=== PATIENT | male | born 1980 ===

== ENCOUNTER 2019-06-25 12:01 | Inpatient (IN) ==
[2019-06-25] MEDS ORDERED: ONDANSETRON 4 MG/2 ML VIAL IV PRN (15:15)
[2019-06-25] MEDS: DEXT 5% NACL 0.9% KCL 20 MEQ 20 MEQ/1,000 ML BAG IV SCH (16:52)
[2019-06-25 20:38] LABS: Apearance,Urine Slightly Hazy (Clear); Bacteria,Urine Occasional /HPF (Few); Bilirubin,Urine Moderate mg/dL (Negative); Blood, Urine Negative (Negative); Glucose,Urine (UA) Negative (Negative); Hyaline Casts,Urine 21 /LPF (0-3); Ketones,Urine Negative (Negative); Mucus,Urine Occasional /LPF (Occasional); Nitrite,Urine Negative (Negative); Protein,Urine 30 MG/DL; Squamous Epithelial Cell,Urine Occasional /HPF (0-10); Urine Color Amber (Yellow); WBC,Urine 2 /HPF (0-6)
[2019-06-25] MEDS: POTASSIUM CHLORIDE 20 MEQ TABLET PO SCH (20:43)
[2019-06-25 20:56] LABS: Barbiturates Screen,Urine Negative (Negative); Benzodiazepines Screen,Urine Negative (Negative); Cannabinoid Screen,Urine Negative (Negative); Opiate Screen,Urine Negative (Negative); Phencyclidine Screen,Urine Negative (Negative)
[2019-06-26] MEDS: DEXT 5% NACL 0.9% KCL 20 MEQ 20 MEQ/1,000 ML BAG IV SCH ×4 (03:30→20:30)
[2019-06-26 06:00] LABS: Basophils # 0.1 10*3/uL (0.0-0.2); Basophils % 0.3 % (0.0-0.8); Eosinophils # 0.1 10*3/uL (0.0-0.87); Eosinophils % 0.5 % (0.00-10.9); Hemoglobin 9.1 GM/DL (14.0-18.0); Immature Granulocytes % 1.2 %; Immature Granulocytes Absolute 0.27 #; Lymphocytes % 4.5 % (21.2-54.2); Mean Corpuscular HGB Conc 36.4 GM/DL (32-36); Mean Platelet Volume 8.9 FL (9.6-12.0); Monocytes % 5.9 % (1.7-12.7); Neutrophils % 87.6 % (38.7-73.9); Platelet Count 131 T/CUMM (130-400); Red Blood Count 2.38 MC/CUMM (3.8-5.5)
[2019-06-26 06:14] LABS: INR 3.7
[2019-06-26 06:31] LABS: Eosinophils 4 % (0-10); Hypochromasia 1+; Lymphocytes 3 % (20-55); Platelet Estimate Normal; Segmented Neutrophils 85 % (50-85); Total Cells Counted 100
[2019-06-26 06:38] LABS: Albumin 1.2 G/DL (3.4-5.0); Bilirubin,Direct 11.47 MG/DL (0.0-0.20); Calcium 7.3 MG/DL (8.5-10.1); Osmolality,Calculated 245.8 MOS/KG (273-304)
[2019-06-26 06:39] LABS: PT Patient Result 37.5 SECS (9.8-11.9); Partial Thromboplastin Time 98.5 SECS (20.8-36.0)
[2019-06-26 06:40] LABS: Bilirubin,Total 16.3 MG/DL (0.2-1.0)
[2019-06-26] MEDS: POTASSIUM CHLORIDE 20 MEQ TABLET PO SCH ×2 (08:22→20:32)
[2019-06-26] MEDS: LACTULOSE 20 GM/30 ML UDCUP PO SCH ×2 (08:45→20:33)
[2019-06-26] MEDS ORDERED: ALBUMIN 25% 50 GM in PREMIX 1 EACH IV ONE (09:00)
[2019-06-26] MEDS ORDERED: SODIUM CHLORIDE 0.9% 1,000 ML IV PRN (09:02)
[2019-06-26 10:11] LABS: % Iron Saturation 76.1 % (18-50)
[2019-06-26] MEDS: PHYTONADIONE 10 MG/1 ML AMP SUBCUT SCH (10:58)
[2019-06-26 13:34] LABS: Folate 2.5 NG/ML (5.4-24.0); Vitamin B12 > 2000 PG/ML (211-911)
[2019-06-26] MEDS: cefTRIAXone 1,000 MG in SYRINGE 1 EACH IV SCH (13:41)
[2019-06-26] MEDS: metroNIDAZOLE INJ 500 MG in PREMIX 1 EACH IV SCH ×2 (13:46→20:32)
[2019-06-27] MEDS: metroNIDAZOLE INJ 500 MG in PREMIX 1 EACH IV SCH ×4 (02:16→21:34)
[2019-06-27] MEDS: DEXT 5% NACL 0.9% KCL 20 MEQ 20 MEQ/1,000 ML BAG IV SCH ×4 (06:35→21:34)
[2019-06-27] MEDS: LACTULOSE 20 GM/30 ML UDCUP PO SCH ×2 (09:36→21:35)
[2019-06-27] MEDS: POTASSIUM CHLORIDE 20 MEQ TABLET PO SCH ×2 (09:36→21:35)
[2019-06-27] MEDS: PHYTONADIONE 10 MG/1 ML AMP SUBCUT SCH (09:36)
[2019-06-27 11:35] LABS: Basophils # 0.1 10*3/uL (0.0-0.2); Basophils % 0.4 % (0.0-0.8); Eosinophils # 0.1 10*3/uL (0.0-0.87); Eosinophils % 0.4 % (0.00-10.9); Hemoglobin 8.4 GM/DL (14.0-18.0); Immature Granulocytes % 1.7 %; Immature Granulocytes Absolute 0.36 #; Lymphocytes # 0.7 10*3/uL (1.4-4.0); Lymphocytes % 3.3 % (21.2-54.2); Mean Corpuscular Volume 108.1 FL (87-102); Mean Platelet Volume 8.5 FL (9.6-12.0); Monocytes % 4.6 % (1.7-12.7); Neutrophils % 89.6 % (38.7-73.9); Platelet Count 160 T/CUMM (130-400); Red Blood Count 2.22 MC/CUMM (3.8-5.5); Red Cell Distribution Width 15.7 % (9.3-17.3); White Blood Count 21.6 T/CUMM (4-12)
[2019-06-27 11:50] LABS: Calcium 7.6 MG/DL (8.5-10.1); Osmolality,Calculated 260.7 MOS/KG (273-304)
[2019-06-27 12:11] LABS: INR 1.7; PT Patient Result 17.8 SECS (9.8-11.9)
[2019-06-27 12:16] LABS: Partial Thromboplastin Time 49.3 SECS (23.9-33.8)
[2019-06-27] MEDS ORDERED: DIAZEPAM 5 MG TABLET PO ONE (12:20)
[2019-06-27 12:23] LABS: Anisocytosis 1+; Band Neutrophils 9 % (0-10); Eosinophils 4 % (0-10); Lymphocytes 4 % (20-55); Macrocytosis 2+; Platelet Estimate Normal; Segmented Neutrophils 80 % (50-85); Total Cells Counted 100
[2019-06-27] MEDS: cefTRIAXone 1,000 MG in SYRINGE 1 EACH IV SCH (14:04)
[2019-06-27] MEDS ORDERED: SODIUM CHLORIDE 0.9% 1,000 ML IV PRN (15:45)
[2019-06-27 16:06] LABS: Neutrophils,Peritoneal Fluid 24 %
[2019-06-27 16:07] LABS: RBC,Peritoneal Fluid 140 T/CUMM
[2019-06-27] MEDS: FOLIC ACID 1 MG TABLET PO SCH (21:35)
[2019-06-28] MEDS: metroNIDAZOLE INJ 500 MG in PREMIX 1 EACH IV SCH ×4 (01:06→20:59)
[2019-06-28] MEDS: DEXT 5% NACL 0.9% KCL 20 MEQ 20 MEQ/1,000 ML BAG IV SCH ×4 (02:18→23:47)
[2019-06-28 06:12] LABS: Basophils # 0.1 10*3/uL (0.0-0.2); Basophils % 0.5 % (0.0-0.8); Eosinophils # 0.1 10*3/uL (0.0-0.87); Eosinophils % 0.3 % (0.00-10.9); Hematocrit 29.8 VOL% (42.0-52.0); Hemoglobin 10.2 GM/DL (14.0-18.0); Immature Granulocytes % 2.5 %; Immature Granulocytes Absolute 0.64 #; Lymphocytes # 1.2 10*3/uL (1.4-4.0); Lymphocytes % 4.6 % (21.2-54.2); Mean Corpuscular HGB Conc 34.2 GM/DL (32-36); Mean Corpuscular Volume 106.4 FL (87-102); Mean Platelet Volume 9.2 FL (9.6-12.0); Monocytes % 5.8 % (1.7-12.7); Neutrophils % 86.3 % (38.7-73.9); Platelet Count 185 T/CUMM (130-400); Red Cell Distribution Width 18.3 % (9.3-17.3); White Blood Count 25.9 T/CUMM (4-12)
[2019-06-28 06:33] LABS: INR 2.1
[2019-06-28 06:34] LABS: Calcium 7.7 MG/DL (8.5-10.1); Osmolality,Calculated 260.5 MOS/KG (273-304); Total Protein 6.6 G/DL (6.4-8.3)
[2019-06-28 06:34] LABS: PT Patient Result 21.9 SECS (9.8-11.9); Partial Thromboplastin Time 53.3 SECS (23.9-33.8)
[2019-06-28 06:35] LABS: Albumin 2.1 G/DL (3.4-5.0); Bilirubin,Direct 13.42 MG/DL (0.0-0.20); Calcium 7.6 MG/DL (8.5-10.1); Osmolality,Calculated 260.5 MOS/KG (273-304); Total Protein 6.8 G/DL (6.4-8.3)
[2019-06-28 06:37] LABS: Bilirubin,Indirect 6.7 MG/DL (0.0-1.0); Bilirubin,Total 20.1 MG/DL (0.2-1.0)
[2019-06-28 06:47] LABS: Eosinophils 1 % (0-10); Lymphocytes 5 % (20-55); Segmented Neutrophils 85 % (50-85); Total Cells Counted 100
[2019-06-28 06:48] LABS: Platelet Estimate Decreased; Polychromasia Slight
[2019-06-28] MEDS: POTASSIUM CHLORIDE 20 MEQ TABLET PO SCH ×2 (09:09→20:55)
[2019-06-28] MEDS: PHYTONADIONE 10 MG/1 ML AMP SUBCUT SCH (09:09)
[2019-06-28] MEDS: LACTULOSE 20 GM/30 ML UDCUP PO SCH ×2 (09:10→20:55)
[2019-06-28] MEDS: cefTRIAXone 1,000 MG in SYRINGE 1 EACH IV SCH (16:13)
[2019-06-28] MEDS: FOLIC ACID 1 MG TABLET PO SCH (20:55)
[2019-06-29] MEDS: metroNIDAZOLE INJ 500 MG in PREMIX 1 EACH IV SCH ×3 (02:10→15:03)
[2019-06-29 06:03] LABS: Basophils # 0.2 10*3/uL (0.0-0.2); Basophils % 0.8 % (0.0-0.8); Eosinophils # 0.1 10*3/uL (0.0-0.87); Eosinophils % 0.4 % (0.00-10.9); Hematocrit 28.1 VOL% (42.0-52.0); Hemoglobin 9.7 GM/DL (14.0-18.0); Immature Granulocytes % 3.2 %; Immature Granulocytes Absolute 0.78 #; Lymphocytes # 1.1 10*3/uL (1.4-4.0); Lymphocytes % 4.5 % (21.2-54.2); Mean Corpuscular HGB Conc 34.5 GM/DL (32-36); Mean Corpuscular Volume 103.3 FL (87-102); Mean Platelet Volume 8.7 FL (9.6-12.0); Monocytes % 6.5 % (1.7-12.7); Neutrophils % 84.6 % (38.7-73.9); Platelet Count 172 T/CUMM (130-400); Red Blood Count 2.72 MC/CUMM (3.8-5.5); White Blood Count 24.7 T/CUMM (4-12)
[2019-06-29 06:17] LABS: INR 2.8; Partial Thromboplastin Time 67.2 SECS (23.9-33.8)
[2019-06-29 06:20] LABS: PT Patient Result 28.9 SECS (9.8-11.9)
[2019-06-29 06:24] LABS: Albumin 1.7 G/DL (3.4-5.0); Calcium 7.9 MG/DL (8.5-10.1); Osmolality,Calculated 265.2 MOS/KG (273-304); Total Protein 6.1 G/DL (6.4-8.3)
[2019-06-29 06:30] LABS: Bilirubin,Total 19.5 MG/DL (0.2-1.0)
[2019-06-29 06:37] LABS: Band Neutrophils 6 % (0-10); Eosinophils 1 % (0-10); Lymphocytes 3 % (20-55); Segmented Neutrophils 85 % (50-85); Total Cells Counted 100
[2019-06-29 06:38] LABS: Platelet Estimate Adequate
[2019-06-29] MEDS: DEXT 5% NACL 0.9% KCL 20 MEQ 20 MEQ/1,000 ML BAG IV SCH ×3 (10:04→21:33)
[2019-06-29] MEDS: LACTULOSE 20 GM/30 ML UDCUP PO SCH ×2 (10:07→21:28)
[2019-06-29] MEDS: POTASSIUM CHLORIDE 20 MEQ TABLET PO SCH ×2 (10:07→21:32)
[2019-06-29] MEDS: PHYTONADIONE 10 MG/1 ML AMP SUBCUT SCH (10:07)
[2019-06-29] MEDS: cefTRIAXone 1,000 MG in SYRINGE 1 EACH IV SCH (15:04)
[2019-06-29] MEDS: FOLIC ACID 1 MG TABLET PO SCH (21:28)
[2019-06-30 05:06] LABS: Basophils # 0.2 10*3/uL (0.0-0.2); Basophils % 0.6 % (0.0-0.8); Eosinophils # 0.9 10*3/uL (0.0-0.87); Eosinophils % 3.7 % (0.00-10.9); Hematocrit 27.5 VOL% (42.0-52.0); Hemoglobin 9.5 GM/DL (14.0-18.0); Immature Granulocytes % 3.8 %; Immature Granulocytes Absolute 0.91 #; Lymphocytes # 1.2 10*3/uL (1.4-4.0); Mean Corpuscular HGB Conc 34.5 GM/DL (32-36); Mean Corpuscular Volume 104.2 FL (87-102); Mean Platelet Volume 8.7 FL (9.6-12.0); Monocytes % 7.4 % (1.7-12.7); Neutrophils % 79.5 % (38.7-73.9); Platelet Count 158 T/CUMM (130-400); Red Blood Count 2.64 MC/CUMM (3.8-5.5); Red Cell Distribution Width 18.6 % (9.3-17.3)
[2019-06-30 05:34] LABS: Albumin 1.7 G/DL (3.4-5.0); Calcium 7.5 MG/DL (8.5-10.1); Osmolality,Calculated 267.1 MOS/KG (273-304); Total Protein 5.9 G/DL (6.4-8.3)
[2019-06-30 05:36] LABS: Lymphocytes 5 % (20-55); Platelet Estimate Adequate; Polychromasia Few; Segmented Neutrophils 90 % (50-85); Total Cells Counted 100
[2019-06-30 06:14] LABS: Bilirubin,Total 19.5 MG/DL (0.2-1.0)
[2019-06-30] MEDS: DEXT 5% NACL 0.9% KCL 20 MEQ 20 MEQ/1,000 ML BAG IV SCH (07:39)
[2019-06-30] MEDS: POTASSIUM CHLORIDE 20 MEQ TABLET PO SCH (09:32)
[2019-06-30] MEDS: LACTULOSE 20 GM/30 ML UDCUP PO SCH (09:32)
[2019-06-30] MEDS: prednisoLONE 15 MG/5 ML ORAL.SYR PO SCH (09:33)
[2019-06-30] MEDS: VITAMIN E 400 UNIT CAPSULE PO SCH ×2 (11:13→21:20)
[2019-06-30] MEDS: FOLIC ACID 1 MG TABLET PO SCH (21:20)
[2019-07-01 04:31] LABS: Basophils # 0.3 10*3/uL (0.0-0.2); Basophils % 0.6 % (0.0-0.8); Hemoglobin 12.4 GM/DL (14.0-18.0); Lymphocytes # 1.4 10*3/uL (1.4-4.0); Lymphocytes % 3.4 % (21.2-54.2); Mean Corpuscular HGB Conc 34.4 GM/DL (32-36); Mean Corpuscular Volume 104.7 FL (87-102); Mean Platelet Volume 8.8 FL (9.6-12.0); Monocytes % 4.9 % (1.7-12.7); Neutrophils % 87.1 % (38.7-73.9); Platelet Count 196 T/CUMM (130-400); Red Blood Count 3.44 MC/CUMM (3.8-5.5); Red Cell Distribution Width 18.3 % (9.3-17.3)
[2019-07-01 04:36] LABS: White Blood Count 42.1 T/CUMM (4-12)
[2019-07-01 04:56] LABS: Albumin 1.8 G/DL (3.4-5.0); Total Protein 6.9 G/DL (6.4-8.3)
[2019-07-01 05:09] LABS: Lymphocytes 2 % (20-55); Platelet Estimate Adequate; Polychromasia Few; Segmented Neutrophils 90 % (50-85); Total Cells Counted 100
[2019-07-01 05:11] LABS: INR 2.8; PT Patient Result 28.8 SECS (9.8-11.9); Partial Thromboplastin Time 70.5 SECS (23.9-33.8)
[2019-07-01 05:36] LABS: Bilirubin,Total 22.4 MG/DL (0.2-1.0)
[2019-07-01] MEDS: POTASSIUM CHLORIDE 20 MEQ TABLET PO SCH (10:50)
[2019-07-01] MEDS: prednisoLONE 15 MG/5 ML ORAL.SYR PO SCH (10:50)
[2019-07-01] MEDS: VITAMIN E 400 UNIT CAPSULE PO SCH ×2 (10:50→20:12)
[2019-07-01] MEDS: FOLIC ACID 1 MG TABLET PO SCH (20:12)
[2019-07-02 06:07] LABS: Basophils # 0.1 10*3/uL (0.0-0.2); Basophils % 0.3 % (0.0-0.8); Hematocrit 33.6 VOL% (42.0-52.0); Hemoglobin 11.4 GM/DL (14.0-18.0); Immature Granulocytes % 3.5 %; Immature Granulocytes Absolute 1.47 #; Lymphocytes # 1.4 10*3/uL (1.4-4.0); Lymphocytes % 3.3 % (21.2-54.2); Mean Corpuscular HGB Conc 33.9 GM/DL (32-36); Mean Platelet Volume 8.9 FL (9.6-12.0); Monocytes % 6.2 % (1.7-12.7); Neutrophils % 86.7 % (38.7-73.9); Platelet Count 195 T/CUMM (130-400); Red Blood Count 3.14 MC/CUMM (3.8-5.5); Red Cell Distribution Width 18.1 % (9.3-17.3)
[2019-07-02 06:18] LABS: White Blood Count 42.4 T/CUMM (4-12)
[2019-07-02 06:26] LABS: Band Neutrophils 7 % (0-10); Lymphocytes 3 % (20-55); Segmented Neutrophils 87 % (50-85); Total Cells Counted 100
[2019-07-02 06:27] LABS: Platelet Estimate Adequate
[2019-07-02 06:28] LABS: Albumin 1.6 G/DL (3.4-5.0); Calcium 8.4 MG/DL (8.5-10.1); Osmolality,Calculated 267.4 MOS/KG (273-304); Total Protein 6.4 G/DL (6.4-8.3)
[2019-07-02 06:34] LABS: Bilirubin,Total 20.2 MG/DL (0.2-1.0)
[2019-07-02] MEDS: METOCLOPRAMIDE 10 MG/10 ML UDCUP PO SCH ×2 (08:51→12:04)
[2019-07-02] MEDS: POTASSIUM CHLORIDE 20 MEQ TABLET PO SCH (08:51)
[2019-07-02] MEDS: prednisoLONE 15 MG/5 ML ORAL.SYR PO SCH (08:51)
[2019-07-02] MEDS: VITAMIN E 400 UNIT CAPSULE PO SCH (08:51)
[2019-07-02] MEDS ORDERED: FUROSEMIDE 20 MG TABLET PO SCH (09:00)
[2019-07-02] MEDS ORDERED: SPIRONOLACTONE 50 MG TABLET PO SCH (09:00)
[2019-07-02] MEDS ORDERED: LIDOCAINE 2% 5 ML VIAL ONE (10:00)
[2019-07-02] MEDS ORDERED: propofoL 200 MG/20 ML VIAL IV ONE (10:00)
[2019-07-02 16:09] VITALS: BP 118/74
[2019-07-02] MEDS ORDERED: PANTOPRAZOLE 40 MG TABLET PO SCH (19:00)
[2019-07-03 16:41] LABS: Specimen Type SEE COMMENTS
== END 2019-07-02 18:30 | disposition home or self-care (01) | DRG 432 ==
LOC: SUATTDRO 12:17 → N.5E 12:17 → N.TELEN 06-29 10:59
PROVIDERS: ADMIT Internal Medicine; ATTEND Family Medicine